=== PATIENT | female | born 1965 | race Caucasian/White ===

== ENCOUNTER 2018-04-29 22:52 | Emergency (ER) | payer SELFPAY ==
--- NOTE | 2018-04-30 02:38 | RADIOLOGY REPORT (SQ) ---
EXAM DESCRIPTION: XR NECK SOFT TISSUE COMPLETED DATE/TME: 04/30/2018 01:50 CLINICAL HISTORY: 52 years Female, swallowed FB COMPARISON: None. Findings: Patent nasopharynx and airway. Anterior C5-C6 cervical hardware fusion. Likely external clip seen on the lateral view only overlying the airway, not present on frontal view. Else, no radiopaque foreign body. Normal prevertebral soft tissues. Normal alignment, curvature, and vertebral heights of the cervical spine. Bones, joints, and soft tissues of the XR NECK SOFT TISSUE appear otherwise unremarkable. IMPRESSION: No acute findings.
[2018-04-30] MEDS ORDERED: LIDOCAINE 2% VISCOUS SOLN 20 ML UDCUP PO ONE (03:04)
[2018-04-30] MEDS ORDERED: MAG HYDROX/AL HYDROX/SIMETH SUSP 30 ML UDCUP PO ONE (03:04)
--- NOTE | 2018-04-30 03:43 | ER Document Report ---
HPI - HPI Patient complains to provider of: Foreign body sensation in her throat Time Seen by Provider: 04/30/18 01:00 Pain Level: 3 Context: Patient is an otherwise healthy 52-year-old female presents to the emergency department for a foreign body sensation in her throat. Patient states she was drinking ice tea yesterday around 1500 hrs. when she thinks there may have been something in the IC that she swallowed. She is unsure if potentially she swallowed an ice cube as well. States she has had pain in the right side "inside my throat" ever since that episode. Patient denies any respiratory distress, vomiting, she is able to hold her own secretions and has been able to eat and drink since this incident. - REPRODUCTIVE Reproductive: DENIES: : - DERM Skin Color: Normal, [place] Past Medical History - General Information source: Patient - Social History Smoking Status: Never Smoker Chew tobacco use (# tins/day): No Frequency of alcohol use: None Drug Abuse: None Family History: Reviewed & Not Pertinent Patient has suicidal ideation: No Patient has homicidal ideation: No Renal/ Medical History: Denies: Hx Peritoneal Dialysis Vertical Provider Document - CONSTITUTIONAL Agree With Documented VS: Yes Notes: GENERAL: Alert, interacts well. No acute distress. HEAD: Normocephalic, atraumatic. EYES: Pupils equal, round, and reactive to light. Extraocular movements intact. ENT: Oral mucosa moist, tongue midline. Pharynx within normal limits nonerythematous no palatal petechiae or exudate noted tonsils +1 bilaterally. NECK: Full range of motion. Supple. Trachea midline. LUNGS: Clear to auscultation bilaterally, no wheezes, rales, or rhonchi. No respiratory distress. HEART: Regular rate and rhythm. No murmur ABDOMEN: Soft, non-tender. Non-distended. Bowel sounds present in all 4 quadrants. EXTREMITIES: Moves all 4 extremities spontaneously. No edema, normal radial and dorsalis pedis pulses bilaterally. No cyanosis. BACK: no cervical, thoracic, lumbar midline tenderness. No saddle anesthesia, normal distal neurovascular exam. NEUROLOGICAL: Alert and oriented x3. Normal speech. cranial nerves II through XII grossly intact. PSYCH: Normal affect, normal mood. SKIN: Warm, dry, normal turgor. No rashes or lesions noted. - INFECTION CONTROL TRAVEL OUTSIDE OF THE [place] IN LAST 30 DAYS: No Course - Re-evaluation Re-evalutation: Patient soft tissue neck x-ray reveals no signs of abnormalities. Patient was given lidocaine and Maalox in the emergency department for her discomfort. Patient states she overall feels a lot better after that treatment. Discussed at home use of lozenges, [id number] throat sprays. Patient instructed to follow-up with primary care provider for any other concerning symptoms. Patient stable for discharge. Discharge - Discharge Clinical Impression: Foreign body sensation in throat Condition: Stable Disposition: HOME, SELF-CARE Instructions: Esophageal Foreign Body ([facility]), Swallowed Foreign Body ([facility]) Additional Instructions: as we discussed you have been seen and treated in the emergency department for a potential foreign body in your neck. Your x-rays revealed no signs of foreign bodies. We have given you numbing medication to help with your discomfort. Please use [id number] lozenges or sterile numbing sprays. At this point in time you should follow-up with your primary care provider for further evaluation. Forms: Return to Work
[2018-04-30 03:52] VITALS: BP 141/83
== END 2018-04-30 03:53 | disposition home or self-care (01) ==
LOC: ER 22:52
DX: R09.89 Other specified symptoms and signs involving the circulatory and respiratory systems (principal)
CPT/HCPCS: 99283; 70360; J3490

== ENCOUNTER → 2019-04-03 | Outpatient (CLI) | payer BC | LOC: WI 09:15 | PROVIDERS: ATTEND Nurse Practitioner Primary Care | DX: Z12.31 Encounter for screening mammogram for malignant neoplasm of breast (principal) | CPT/HCPCS: 77063; 77067 ==